=== PATIENT | male | born 1980 | race Caucasian/White ===

== ENCOUNTER 2017-04-01 19:35 | Inpatient (IN) | payer MEDICAID ==
[~2017-04-01] VITALS: Ht 172.7 cm; Wt 77.6 kg
[2017-04-01 20:48] LABS: PLATELET COUNT 241 x10^3mcL (130-400); RED CELL DISTRIBUTION WIDTH 12.2 % (11.5-14.5)
[2017-04-01 20:50] LABS: BASOPHIL % 2.9 % (0-2)
[2017-04-01 20:57] LABS: CALCIUM 9.3 mg/dL (8.5-10.1); CARBON DIOXIDE 25.9 mmol/L (21-32); CHLORIDE SERUM 101 mmol/L (98-107); GFR1 > 60 mL/min; GLUCOSE SERUM 114 mg/dL (74-106); POTASSIUM SERUM 3.5 mmol/L (3.5-5.1); SODIUM SERUM 137 mmol/L (136-145)
[2017-04-01 21:09] LABS: ALKALINE PHOSPHATASE 72 U/L (46-116); ALT/SGPT 92 U/L (16-63); AST/SGOT 67 U/L (15-37); BILIRUBIN TOTAL 0.94 mg/dL (0.20-1.00); FREE T4 1.07 ng/dL (0.76-1.46)
[2017-04-01 21:10] LABS: TOTAL PROTEIN, SERUM 8.4 g/dL (6.4-8.2)
[2017-04-01 23:37] VITALS: BP 130/85
[2017-04-01 23:39] VITALS: BP 130/85
[2017-04-02 03:24] LABS: MAGNESIUM 2.2 mg/dL (1.8-2.4); PHOSPHOROUS 3.4 mg/dL (2.5-4.9)
[2017-04-02 03:35] LABS: FREE THYROXINE INDEX 2.6 ug/dL (1.4-4.5); T4(THYROXINE) 7.2 ug/dL (4.7-13.3)
[2017-04-02 04:43] VITALS: BP 115/79
[2017-04-02 07:07] LABS: BASOPHIL % 0.4 % (0-2); PLATELET COUNT 184 x10^3mcL (130-400); RED CELL DISTRIBUTION WIDTH 12.3 % (11.5-14.5)
[2017-04-02 07:10] LABS: CALCIUM 7.7 mg/dL (8.5-10.1); CARBON DIOXIDE 25.2 mmol/L (21-32); CHLORIDE SERUM 107 mmol/L (98-107); CREATININE SERUM 0.7 mg/dL (0.7-1.3); GFR1 > 60 mL/min; GLUCOSE SERUM 79 mg/dL (74-106); POTASSIUM SERUM 3.3 mmol/L (3.5-5.1); SODIUM SERUM 141 mmol/L (136-145)
[2017-04-02 09:07] VITALS: BP 98/59
[2017-04-02 12:57] VITALS: BP 108/73
[2017-04-02 16:00] LABS: T3 TOTAL 1.57 ng/mL
[2017-04-02 17:06] VITALS: BP 101/56
[2017-04-02 21:51] VITALS: BP 107/62
[2017-04-03 05:43] VITALS: BP 98/63
[2017-04-03 06:32] LABS: BASOPHIL % 0.4 % (0-2); PLATELET COUNT 179 x10^3mcL (130-400); RED CELL DISTRIBUTION WIDTH 12.4 % (11.5-14.5)
[2017-04-03 06:36] LABS: CALCIUM 8.3 mg/dL (8.5-10.1); CARBON DIOXIDE 25.6 mmol/L (21-32); CHLORIDE SERUM 107 mmol/L (98-107); CREATININE SERUM 0.7 mg/dL (0.7-1.3); GFR1 > 60 mL/min; GLUCOSE SERUM 81 mg/dL (74-106); SODIUM SERUM 140 mmol/L (136-145)
[2017-04-03 09:23] VITALS: BP 101/64
[2017-04-03 12:56] VITALS: BP 101/64
[2017-04-03 13:04] VITALS: BP 96/62
[2017-04-03 17:43] VITALS: BP 114/80
[2017-04-03 20:24] VITALS: BP 107/67
== END 2017-04-03 20:53 | disposition home or self-care (01) | DRG 816 ==
LOC: ED 19:35 → DU 22:13
PROVIDERS: Emergency Medicine; ADMIT Student in an Organized Health Care Education/Training Program
DX: T40.5X1A Poisoning by cocaine, accidental (unintentional), initial encounter (principal); G92 Toxic encephalopathy; F14.10 Cocaine abuse, uncomplicated; F10.10 Alcohol abuse, uncomplicated; F17.210 Nicotine dependence, cigarettes, uncomplicated; R74.0 Nonspecific elevation of levels of transaminase and lactic acid dehydrogenase [LDH]; E87.6 Hypokalemia; K80.20 Calculus of gallbladder without cholecystitis without obstruction; Z59.0 Homelessness; Z91.19 Patient's noncompliance with other medical treatment and regimen; Z68.26 Body mass index [BMI] 26.0-26.9, adult; Y92.89 Other specified places as the place of occurrence of the external cause
CPT/HCPCS: 83880; 84439; 85378; G0480; J2060; J2270; J7030; J8597; Q0092